=== PATIENT | female | born 2000 ===

== ENCOUNTER 2023-03-05 07:09 | Outpatient (CLI) | payer BC ==
[2023-03-05] VITALS (20 sets, daily range): BP systolic 86–178; BP diastolic 25–116; PULSE 97–115
== END 2023-03-05 23:59 | disposition home or self-care (01) ==
LOC: CARD DIAG 07:09
PROVIDERS: ATTEND Internal Medicine Interventional Cardiology
DX: R42 Dizziness and giddiness (principal)
CPT/HCPCS: 93660